=== PATIENT | male | born 1955 | race Caucasian/White ===

== ENCOUNTER → 2018-11-05 | Outpatient (CLI) | payer OTHER ==
--- NOTE | 2018-11-05 12:40 | PCVCIMAG ---
EXAM: DUPLEX ULTRASOUND OF THE RIGHT GROIN INDICATION: Groin swelling and pain. FINDINGS: No pseudoaneurysm is present. The common femoral artery and vein are patent. No arteriovenous fistula is seen. IMPRESSION: Study is negative for pseudoaneurysm. Incidental note is made of a 1.3 x 3.0 x 3.6 cm subcutaneous hematoma. LOC:[place] [id number]
== END | disposition home or self-care (01) ==
LOC: PCVCIMAG 11:42
PROVIDERS: ATTEND Internal Medicine Cardiovascular Disease
DX: R10.31 Right lower quadrant pain (principal); M79.604 Pain in right leg; Z98.890 Other specified postprocedural states
CPT/HCPCS: 93926

== ENCOUNTER → 2019-03-26 | Outpatient (CLI) | payer OTHER ==
--- NOTE | 2019-03-29 12:35 | PCVCIMAG ---
APPROVED REPORT Study performed: 03/26/2019 14:44:30 Exam: Stress Echocardiogram Indication: CAD s/p ME, Hyperlipidemia, Hypertension Patient Location: Bedside Stress Nurse: Shanelle Joyce RN Room #: 2 Status: routine Ht: 5 ft 10 in HR: 68 bpm BP: 124/82 mmHg Rhythm: NSR Procedure The patient underwent an Exercise Stress Test using the Lester Protocol. Blood pressure, heart rate, and EKG were monitored. An Echocardiogram was performed by medical service technician in four stages in quad fashion. At peak stress, four selected images were obtained and placed side by side with resting images for comparison. Stress Test Details Stress Test: Exercise stress testing was performed using a Lester protocol. HR Resting HR: 68 bpmMax Heart Rate (APMHR): 155 bpm Max HR Achieved: 142 bpmTarget HR (85% APMHR): 131 bpm % of APMHR: 91 Recovery HR: 95 bpm HR response to stress: Normal HR response to stress BP Resting BP: 124/82 mmHg Max BP: 146/66 mmHg Recovery BP: 134/68 mmHg BP response to stress: Normal blood pressure response to stress. ECG Resting ECG: Sinus Rhythm Stress ECG: Sinus Rhythm Arrhythmia: Occasional PVC's Recovery ECG: Sinus Rhythm Recovery Arrhythmia: Occasional PVC's Clinical Reason for Termination: Maximal effort, Dyspnea Exercise duration: 10 min 31 sec Highest Stage Achieved: Stage 4: 4.2 mph at 16% grade. Exercise capacity: 13.40 METs Overall Exercise Capacity for Age: Good Stress ECG Conclusion ECG: Non-ischemic Clinical: Non-ischemic Pre-Stress Echo The resting Echocardiogram showed normal left ventricular contractility with an estimated Ejection Fraction of about >55%. Normal wall motion in all segments on baseline images. Post-Stress Echo The stress Echocardiogram showed normal left ventricular contractility with an estimated Ejection Fraction of about 60-65%. Normal augmentation of wall motion in all segments on post stress images. Clinical No clinical or ECG evidence for ischemia. Conclusion Clinical Response: Non-ischemic Exercise Capacity: Superior Stress ECG Response: Non-ischemic Stress Echo Images: Non-ischemic No clinical, EKG or echocardiographic evidence for ischemia. Normal stress echocardiogram with maximal exercise stress. Trace tricuspid regurgitation and trace mitral regurgitation. No other valvular abnormalities. Other Information Study Quality: Adequate <Conclusion> No clinical, EKG or echocardiographic evidence for ischemia. Normal stress echocardiogram with maximal exercise stress. Trace tricuspid regurgitation and trace mitral regurgitation. No other valvular abnormalities.
== END | disposition home or self-care (01) ==
LOC: PCVCIMAG 14:21
PROVIDERS: ATTEND Internal Medicine Cardiovascular Disease
DX: I25.10 Atherosclerotic heart disease of native coronary artery without angina pectoris (principal); E78.5 Hyperlipidemia, unspecified; I10 Essential (primary) hypertension; I21.9 Acute myocardial infarction, unspecified
CPT/HCPCS: 93325; 93351